=== PATIENT | male | born 1950 | race Caucasian/White ===

== ENCOUNTER 2020-03-18 14:00 | Outpatient (RCR) | payer MEDICARE, SELFPAY | END 2020-08-19 10:59 | disposition home or self-care (01) | LOC: HO.WCC 14:00 | PROVIDERS: PCP Internal Medicine; Visit Provider Surgery | DX: E11.621 Type 2 diabetes mellitus with foot ulcer (principal); L97.525 Non-pressure chronic ulcer of other part of left foot with muscle involvement without evidence of necrosis; T25.222A Burn of second degree of left foot, initial encounter; E11.43 Type 2 diabetes mellitus with diabetic autonomic (poly)neuropathy; H54.8 Legal blindness, as defined in USA; T31.0 Burns involving less than 10% of body surface | CPT/HCPCS: 11042; 11043; 15275; 16020; 99212; 99213; Q4186; Q4187 ==